=== PATIENT | male | born 2005 | race Caucasian/White ===

== ENCOUNTER 2025-02-03 08:38 | Day surgery (SDC) | payer OTHER, SELFPAY ==
[2025-02-03] VITALS (11 sets, daily range): BP systolic 94–125; BP diastolic 44–83; PULSE 66–80; RESP 16–20; TEMP 36.3–37.3; O2SAT 95–100; BMI 24.5
[2025-02-03] MEDS: Lactated Ringers 1,000 ML 15 ML IV (09:08)
--- NOTE | 2025-02-03 09:22 | PCM.PRE.AN2 ---
ASA Classification* ASA Classification ASA Classification: 2 Assessment & Plan Anesthesia* Anesthesia Assessment Anesthesia Assessment: Discussed sedation and/or anesthesia options, risks, benefits, and alternatives with patient/parents/legal guardian/POA. Questions invited. The patient/parents/legal guardian/POA seems to understand and agrees to proceed with anesthesia plan. Reviewed the physical assessment, medical history, allergy history and patient home medications list prior to surgery/procedure/anesthetic and documented any changes. Performed airway and anesthesia risk assessments. Anesthesia Type Anesthesia Type: General and Block (Patient is consented for axillary block.) History Source History Obtained from:: Patient and Chart Anesthesia Focused Assessment* Temperature: 98.3 F Pulse Rate: 67 Blood Pressure: 125/83 Respiratory Rate: 17 Pulse Ox: 100 Oxygen Delivery Method: Room Air Airway Assessment Mouth opens: >3 cm Mallampati Score: III Teeth Condition: Intact Neck Range of motion (ROM): Full ROM Labs Anesthesia Preop lab: CBC CHEMISTRY COAG Pre-Assessment Diagnosis/Proposed Procedure Planned Operative Procedure(s): (R) RIGHT THUMB METACARPOPHALANGEAL JOINT RADIAL COLLATERAL LIGAMENT REPAIR Anesthesia History Anesthesia History - oil gas and pipe tester: Anesthesia History - oil gas and pipe tester Hx Hospitalization No 01/31/25 13:06 Any Problems With Anesthesia No 01/31/25 13:06 Cholinesterase deficiency No 01/31/25 13:06 You/Your Family Experience No 01/31/25 13:06 fever (hyperthermia) with Relationship Recent Exposure to Contagious No 02/03/25 08:58 Disease Does patient have nerve No 01/31/25 13:06 stimulator Patient instructed to have device shut off --Does patient have Pacemaker No 02/03/25 08:58 or ICD? When Was Last Pacemaker Check QUESTION #4 FULL TEXT: You/Your Family Experience fever (hyperthermia) with Anesthesia Last Oral Intake Last Oral intake: Last Oral Intake NPO since 00:00 02/03/25 08:58 Meds taken in AM with sips of No 02/03/25 08:58 water? Meds patient instructed to take am of surgery PONV PONV - oil gas and pipe tester: PONV - oil gas and pipe tester Female No 01/31/25 13:06 HX of Motion Sickness No 01/31/25 13:06 HX of N/V After Surgery No 01/31/25 13:06 Non-Smoker Yes 01/31/25 13:06 Duration of Surgery greater Yes 01/31/25 13:06 than 60 minutes Number of Risk Factors 2 01/31/25 13:06 PONV Score Moderate Risk 01/31/25 13:06 Height & Weight Height & Weight: Anesthesia: Height & Weight Height 5 ft 8 in 02/03/25 08:58 Weight: 73 kg 02/03/25 08:58 Body Mass Index (BMI) 24.5 02/03/25 08:58 Respiratory Assessment Respiratory Assessment - oil gas and pipe tester: Respiratory Tract Infection Hx - oil gas and pipe tester Hx Respiratory Tract Infection No 01/31/25 13:06 STOP Sleep Apnea STOP Sleep Apnea - oil gas and pipe tester: STOP Sleep Apnea - oil gas and pipe tester Hx Hypertension No 01/31/25 13:06 Hx Sleep Apnea No 01/31/25 13:06 CPAP BIPAP Do you snore loudly (louder No 01/31/25 13:06 than talking or can be heard Do you often feel tired/ No 01/31/25 13:06 fatigued/ sleepy during daytime? Has anyone observed you stop No 01/31/25 13:06 breathing during sleep? STOP Results Negative 01/31/25 13:06 QUESTION #5 FULL TEXT : Do you snore loudly (louder than talking or can be heard through closed doors)? Tobacco Use History Tobacco Use History - oil gas and pipe tester: Tobacco Use History - oil gas and pipe tester Tobacco Use Smoking Status Never smoker 01/31/25 13:06 Hx Tobacco Use Yes 01/31/25 13:06 Years Smoking Packs Smoked per Day Smoking Cessation Date was within the last 15 years Hx Smoking Cessation Date Hx Smoking Cessation Counseling Hematologic Medial History Hematologic Hx - oil gas and pipe tester: Hematologic Medical Hx - vocational examiner Hx of Blood Transfusion No 01/31/25 13:06 Hx of Transfusion in last 3 No 01/31/25 13:06 Months Date of Last Transfusion (if within last 3 months) Ever experience any problems No 01/31/25 13:06 with transfusion(s)? Specify any problems Hx of Preganancy in last 3 N/A 01/31/25 13:06 Months Nurse Filling Out Transfusion JZOLLINGE 01/31/25 13:06 & Questions: Date: 01/31/25 01/31/25 13:06 Time: 13:07 01/31/25 13:06 Patient unable to answer at this time (ie. confused, unrespo /Reproduction History /Reproductive History - oil gas and pipe tester: /Reproductive Hx- oil gas and pipe tester Hx Now No 01/31/25 13:06 Gestational Age (in weeks): EDC: Hx Hx Para Hx Section SAB No 01/31/25 13:06 Active Medications Active Medications: Current Medications Generic Name Dose Route Start Last Admin Trade Name Freq PRN Reason Stop Dose Admin Clindamycin Phosphate 600 mg in 50 mls @ 100 mls/hr 02/03/25 10:20 Cleocin IV 02/03/25 10:49 INTRAOP ONE Lactated Ringer's 1,000 mls @ 15 mls/hr 02/03/25 09:15 02/03/25 09:08 IV 15 mls/hr .Q48H ESTEFANY Administration PFSH Medical History Alcohol use Former smoker Home Medications ?Medication ?Instructions ?Recorded ?Last Taken ?Type NK 01/31/25 Unknown History Allergy/AdvReac Type Severity Reaction Status Date / Time cefdinir (From Omnicef) AdvReac Mild Hives Verified 02/03/25 08:56 codeine (From AdvReac Mild Hives Verified 02/03/25 08:56 Tylenol-Codeine) Surgical History (Updated 01/31/25 @ 13:06 by Angie Tapia) Hx of tonsillectomy Social History Smoking Status: Never smoker Review of Systems (Anesthesia) ROS Narrative System reviewed and no additional complaints, except as documented.
[2025-02-03] MEDS: Clindamycin 600 MG/50 ML BAG 100 MG IV (10:49)
[2025-02-03] MEDS: Bupiv/Epi 0.25% 30 ML Vial (10:58)
--- NOTE | 2025-02-03 11:49 | PCM.OPRPT ---
Operative Report (Standard) Operative Information Date of Procedure: 02/03/25 Pre-Operative Diagnosis: Right thumb metacarpophalangeal joint radial collateral ligament tear Post-Operative Diagnosis: Right thumb metacarpophalangeal joint radial collateral ligament tear Surgery/Procedure Performed: Right thumb metacarpophalangeal joint radial collateral ligament repair with internal brace engine installer: Yes Market Intelligence Consultant: Marilu Green Tasks completed by grooming assistant: Opening & closing and Implanting device Type of Anesthesia: General/Regional RN Documented Start/Stop Times: Operation Date: 02/03/25 10:20 Case Time Into Pre-Op 02/03/25 08:44 Out of Pre-Op 02/03/25 10:38 Anesthesia Start 02/03/25 10:39 Into Room 02/03/25 10:39 Procedure Start 02/03/25 10:59 Procedure End 02/03/25 11:35 Anesthesia End 02/03/25 11:43 Out of Room 02/03/25 11:43 Into Recovery 02/03/25 11:45 Procedure Start Time: 10:59 Procedure Stop Time: 11:35 Select all DRAINS/GRAFTS/IMPLANTS that apply: Implanted device Implanted device details: Arthrex internal brace with peek anchor x 2 Estimated Blood Loss: 2 cc Specimen collected: No Description of surgery: Patient was identified in the preoperative holding area by name, medical record number, and date of . The operative extremity was marked. Regional block was administered by anesthesia staff prior to the procedure. All questions answered to the patient's satisfaction. At time of his procedure, patient was brought to the operative suite and positioned supine on a standard operating table. General anesthesia was induced and endotracheal tube placed. An hand table was attached to the patient's right side. All bony prominences were well-padded. We prepped and draped the right upper extremity in a normal, sterile orthopedic fashion. We then performed a timeout confirming the side, site, and operation to be performed. No concerns voiced whether to proceed with surgery. 600 mg IV clindamycin was administered prior to incision by anesthesia staff. The well-padded pneumatic tourniquet that was previously applied to the right upper arm was then inflated after first exsanguinating the right upper extremity with Esmarch bandage. Tourniquet was inflated to 250 mmHg remained up for approximately 20 minutes. Esmarch was removed. Superficial radial nerve and median nerve block was administered with 7 cc quarter percent bupivacaine with epinephrine. I marked a standard mid axial approach to the first MCP joint along the radial aspect. Longitudinal incision approximately 3 cm in length was made. Blunt dissection was carried down to the level of the fascia. The insertion of the abductor pollicis brevis was elevated from the base of the proximal phalanx. This revealed the joint capsule which was disrupted. Avulsion of the radial collateral ligament was noted off the metacarpal head. Elected proceed with fixation as well as internal brace. A 2-0 FiberWire was used to capture the proximal portion of the RCL via inverted mattress. Suture was passed through the eyelet of a fork tip peek anchor as well as a suture tape. Calibrated K wire, cannulated drill were used to drill for the anchor in standard fashion at the origin of the RCL. [place] was placed after tensioning our repair suture. There was good purchase. I then prepped for an anchor distally in standard fashion with K wire and cannulated drill. Internal brace was then tensioned within the fork tip and placed allowing for approximately 3 mm of laxity to avoid overtightening the RCL. Excellent purchase was noted. Suture was cut flush. I then used a 2-0 Vicryl suture to reapproximate the insertion of the abductor pollicis brevis. Tourniquet was deflated. Hemostasis was excellent. Dermis was reapproximated buried 3-0 Vicryl suture and skin reapproximated with subcuticular 4-0 Monocryl and Dermabond. Bulky sterile compression dressing was applied as well as a well-padded thumb spica fiberglass splint. Patient was awakened from anesthesia and safely explained the operative suite. He tolerated the procedure well without apparent complication. He was transferred to his gurney and subsequently PACU in stable condition. Need for skilled ice cream freezer assistant: Marilu Green PA-C was critical to the outcome of the case. During the course of the procedure the physician ice cream freezer assistant played a vital role. Her intimate knowledge of my steps in the procedure aided in safe and expedient completion of the procedure. The PA played a vital role in positioning particularly in obtaining the appropriate positioning. The PA was also vital in the retraction of soft tissues during the exposure and protecting vital structures. The PA was also vital and obtaining ligament reduction and assisting with hardware placement. She also played a vital role in closure and splint application with my direct supervision. Postoperative plan: Discharge home after meeting same-day surgery criteria. Maintain splint x 2 weeks. Follow-up in 2 weeks for wound check. No x-rays needed. Transition to thumb spica brace and initiate occupational therapy for range of motion only. Multimodal pain management with oxycodone, Tylenol and NSAIDs. Aspirin 81 mg twice daily for DVT prophylaxis x 2 weeks. Surgical Findings: Complete avulsion of the RCL at the metacarpal origin right thumb. Stable following fixation. Complications Complications: No Admit VTE Documentation VTE Present on Admission: No VTE Mechan Device Prophylaxis: SCD's VTE Pharm Prophylaxis ordered?: Yes
--- NOTE | 2025-02-03 11:50 | PCM.POST.ANE ---
Anesthesia: Postop Eval I Current Vital Signs Temperature: 99.2 F Pulse Rate: 72 Blood Pressure: 98/44 Respiratory Rate: 20 Pulse Ox: 96 Oxygen Delivery Method: Room Air Assessment Airway patent: Yes Spontaneous unlabored respirations: Yes Mental status: Asleep nausea: No Vomiting: No Anesthesia Complication: No Fluid Hydration Crystalloid volume administer (ml): 1,000 Total IV fluid infused: 1,000 Progress Note Anesthesia document: Postop Eval 1 completed: Yes
--- NOTE | 2025-02-03 12:09 | POSTOPAN2_ITS ---
Anesthesia Postop Eval I Sum Postop Eval Completion status Anesthesia document: Postop Eval 1 completed: Yes Anesthesia Postop Eval I Summary Anesthesia Postop Eval I Summary: Anesthesia Postop Eval I: Assessment Summary Airway patent Yes 02/03/25 11:51 INSTRUMENT PERSON.JDEF Spontaneous unlabored Yes 02/03/25 11:51 INSTRUMENT PERSON.JDEF respirations Mental status Asleep 02/03/25 11:51 INSTRUMENT PERSON.JDEF nausea No 02/03/25 11:51 INSTRUMENT PERSON.JDEF Vomiting No 02/03/25 11:51 INSTRUMENT PERSON.JDEF Anesthesia Postop Eval I: Fluid Summary Crystalloid volume administer 1,000 02/03/25 11:51 INSTRUMENT PERSON.JDEF (ml) Colloids volume administered ( ml) Blood Product volume administered (ml) Total IV fluid infused 1,000 02/03/25 11:51 INSTRUMENT PERSON.JDEF Anesthesia Postop Eval I: Summary Notes Anesthesia Complication No 02/03/25 11:51 INSTRUMENT PERSON.JDEF Anesthesia Complication Comment: Post-operative progress note Anesthesia: Postop Eval II Evaluation Mental status: Awake Pain Level: 2 nausea: No Vomiting: No
--- NOTE | 2025-02-03 12:09 | PCM.POSTANE2 ---
Anesthesia Postop Eval I Sum Postop Eval Completion status Anesthesia document: Postop Eval 1 completed: Yes Anesthesia Postop Eval I Summary Anesthesia Postop Eval I Summary: Anesthesia Postop Eval I: Assessment Summary Airway patent Yes 02/03/25 11:51 OPERATING ROOM REGISTERED NURSE.JDEF Spontaneous unlabored Yes 02/03/25 11:51 OPERATING ROOM REGISTERED NURSE.JDEF respirations Mental status Asleep 02/03/25 11:51 OPERATING ROOM REGISTERED NURSE.JDEF nausea No 02/03/25 11:51 OPERATING ROOM REGISTERED NURSE.JDEF Vomiting No 02/03/25 11:51 OPERATING ROOM REGISTERED NURSE.JDEF Anesthesia Postop Eval I: Fluid Summary Crystalloid volume administer 1,000 02/03/25 11:51 OPERATING ROOM REGISTERED NURSE.JDEF (ml) Colloids volume administered ( ml) Blood Product volume administered (ml) Total IV fluid infused 1,000 02/03/25 11:51 OPERATING ROOM REGISTERED NURSE.JDEF Anesthesia Postop Eval I: Summary Notes Anesthesia Complication No 02/03/25 11:51 OPERATING ROOM REGISTERED NURSE.JDEF Anesthesia Complication Comment: Post-operative progress note Anesthesia: Postop Eval II Evaluation Mental status: Awake Pain Level: 2 nausea: No Vomiting: No
== END 2025-02-03 13:18 | disposition home or self-care (01) ==
LOC: SDC 08:40 → AC 08:42
PROVIDERS: PCP Family Medicine; Referring Provider Student in an Organized Health Care Education/Training Program; Visit Provider Student in an Organized Health Care Education/Training Program
PROC: (CPT 26540; principal; 2025-02-03 10:05)
DX: S83.11 Anterior subluxation and dislocation of proximal end of tibia (principal); S63.641D Sprain of metacarpophalangeal joint of right thumb, subsequent encounter; Y93.67 Activity, basketball; F17.220 Nicotine dependence, chewing tobacco, uncomplicated
CPT/HCPCS: 26540; C1713; J2405